=== PATIENT | female | born 1995 | race Caucasian/White ===

== ENCOUNTER 2017-07-16 22:10 | Emergency (ER) | payer OTHER ==
[~2017-07-16] VITALS: Ht 160 cm; Wt 50.3 kg
[~2017-07-16 22:10] MED LIST: [UNRECOGNIZED DRUG - CODE] PO
[2017-07-16 22:15] VITALS: TEMP 36.3; Ht 160 cm; Wt 50.3 kg
[2017-07-16] MEDS ORDERED: METOCLOPRAMIDE HCL INJ 5 MG/ML 2 ML VIAL IV STA (22:35)
[2017-07-16] MEDS ORDERED: ALUMINUM/MAGNESIUM SUSP 30 ML UDC PO STA (22:35)
[2017-07-16] MEDS ORDERED: DiphenhydrAMINE HCL 50 MG/ML VIAL IV STA (22:35)
[2017-07-16] MEDS ORDERED: SODIUM CHLORIDE 0.9% 1000ML 1,000 ML IV STA ×2 (22:35)
[2017-07-16] MEDS ORDERED: LIDOCAINE HCL 2% VISC SOLN 20 ML UDC PO STA (22:35)
[2017-07-16] MEDS ORDERED: DICYCLOMINE HCL 10 MG/ML 2 ML AMP IM ONE (22:45)
[2017-07-16 23:11] LABS: BASO % 0.6 %; BASO ABS # 0.04 K/uL (0-0.2); COMPLETE YES; EOS % 3.5 %; HEMATOCRIT 42.7 % (37-47); IG% 0.2 %; LYMPH % 22.1 %; LYMPH ABS # 1.46 K/uL (1.2-3.4); MEAN CELL VOLUME 89.3 fL (80-100); MEAN CORPUSCULAR HEMOGLOBIN 30.5 pg (25-34); MEAN CORPUSCULAR HGB CONC 34.2 g/dl (32-36); MEAN PLATELET VOLUME 8.8 fL (7.4-10.4); MONO % 5.9 %; NEUT % 67.7 %; PLATELET COUNT 272 K/uL (130-400); RED BLOOD COUNT 4.78 M/uL (4.2-5.4)
[2017-07-16 23:29] LABS: ALT/SGPT 13 U/L (12-78); BLOOD UREA NITROGEN 8 mg/dl (7-18); BUN/CREATININE RATIO 10.1 (10-20); CALCIUM 9.4 mg/dl (8.5-10.1); CARBON DIOXIDE 26 mmol/L (21-32); CHLORIDE 107 mmol/L (98-107); CREATININE 0.83 mg/dl (0.60-1.20); GLUCOSE 93 mg/dl (70-99); POTASSIUM 3.6 mmol/L (3.5-5.1); SODIUM 141 mmol/L (136-145)
[2017-07-16 23:32] LABS: ALKALINE PHOSPHATASE 74 U/L (45-117); AST/SGOT 13 U/L (15-37)
[2017-07-16 23:33] LABS: PREG INTERNAL NEGATIVE QC NEG CLEAR BACKGROUND; PREG INTERNAL POSITIVE QC POS CONTROL LINE
[2017-07-16 23:51] VITALS: O2SAT 99
[2017-07-17 00:17] LABS: URINE APPEARANCE CLEAR (CLEAR); URINE BILIRUBIN NEG (NEG); URINE COLOR YELLOW; URINE NITRITE NEG (NEG); URINE PH 5.5 (4.5-7.5); URINE SPECIFIC GRAVITY 1.026 (1.000-1.030); UROBILINOGEN NEG (NEG); ZZUR CULT IF INDIC CLEAN CATCH NO
[2017-07-17 00:21] LABS: MANUAL MICROSCOPIC REQUIRED? NO; REVIEW REQ? NO
[2017-07-17] MEDS ORDERED: PANTOprazole SOD 40 MG TAB PO STA (00:28)
[2017-07-17] MEDS ORDERED: PANT40TA PO (00:29)
[2017-07-17 00:44] VITALS: BP 110/82; PULSE 88; O2SAT 100
--- NOTE | 2017-07-17 02:22 | EMERGENCY ROOM VISIT NOTE ---
History First contact with patient: 22:16 Chief Complaint: ABDOMINAL PAIN Stated Complaint: STOMACH PAIN Nursing Triage Summary: pt c/o mid abdominal pain that began approx 10pm while she was working at [employer]. reports hx of abd pain "when I eat sulfates, they make me have bad pain. " pt denies diarrhea, urinary symptoms. associates n/v. pt restless, alert and oriented x4. History of Present Illness The patient is a 21 year old female who presents to the Emergency Room with complaints of epigastric discomfort with nausea and vomiting for the past day that has been intermittent abdominal pain for several months now. Patient states certain foods causes her stomach to get upset. She does not see a family care doctor or GI Dr. for this. No prior endoscopy. Pain currently 4- 10. Food makes it worse and nothing makes it better. No black or blood in the stool. Patient does chest pain, dyspnea, fever, chills, diarrhea, back pain, urinary symptoms. Review of Systems See HPI for pertinent positives & negatives. A total of 10 systems reviewed and were otherwise negative. Past Medical/Surgical History Asthma Social History Smoking Status: Current Every Day Smoker Alcohol Use: none Drug Use: none Occupation Status: employed Current/Historical Medications Scheduled Acetaminophen (Tylenol), 1,000 MG PO prn ud Pantoprazole (Protonix), 40 MG PO DAILY Scheduled PRN Albuterol Hfa (Ventolin Hfa), 2 PUFFS INH Q6H PRN for SOB/Wheezing Physical Exam Vital Signs Date Time Temp Pulse Resp B/P (MAP) Pulse Ox O2 Delivery O2 Flow Rate FiO2 07/17/17 00:44 88 18 110/82 100 07/16/17 23:51 99 Room Air 07/16/17 23:49 92 18 110/82 100 Room Air 07/16/17 22:15 36.3 85 20 131/87 97 Room Air Pain Rating (0-10): 4.0 Physical Exam VITALS: Vitals are noted on the nurse's note and reviewed by myself. Vital signs stable. GENERAL: White female, in no acute distress, nondiaphoretic, well-developed well -nourished. SKIN: The skin was without rashes, erythema, edema, or bruising. There is no tenting of the skin. Capillary reflex less than 2 seconds. HEAD: Normocephalic atraumatic. EARS: External auditory canals clear, tympanic membranes pearly anne without erythema or effusion bilaterally. EYES: Pupils equal round and reactive to light and accommodation. Conjunctivae without injection, sclerae without icterus. Extraocular movements intact. NOSE: Patent, turbinates without inflammation or discharge. MOUTH: Mucous membranes moist. Pharynx without erythema or exudate. Uvula midline. Airway patent. Tongue does not deviate. NECK: Supple without nuchal rigidity. No lymphadenopathy. No thyromegaly. Cervical spine is nontender. No JVD. HEART: Regular rate and rhythm without murmurs gallops or rubs. LUNGS: Clear to auscultation bilaterally without wheezes, rales or rhonchi. No dullness to percussion. No retractions or accessory muscle use. ABDOMEN: Positive bowel sounds x 4. Normal tympanic percussion. Soft, minimally tender to palpation epigastric region, no CVA tenderness, without masses or organomegaly. Sevilla sign negative. No guarding or rebound tenderness. MUSCULOSKELETAL: No muscle atrophy, erythema, or edema noted. NEURO: Patient was alert and oriented to person place and time. Normal sensation to light and sharp touch. No focal neurological deficits. Medical Decision & Procedures Laboratory Results 07/16/17 22:47 Red Blood Count 4.78, Mean Corpuscular Volume 89.3, Mean Corpuscular Hemoglobin 30.5, Mean Corpuscular Hemoglobin Concent 34.2, Mean Platelet Volume 8.8, Neutrophils (%) (Auto) 67.7, Lymphocytes (%) (Auto) 22.1, Monocytes (%) (Auto) 5.9, Eosinophils (%) (Auto) 3.5, Basophils (%) (Auto) 0.6, Neutrophils # (Auto) 4.47, Lymphocytes # (Auto) 1.46, Monocytes # (Auto) 0.39, Eosinophils # (Auto) 0.23, Basophils # (Auto) 0.04 07/16/17 22:47 Test 07/16/17 22:47 07/17/17 00:04 White Blood Count 6.60 K/uL (4.8-10.8) Red Blood Count 4.78 M/uL (4.2-5.4) Hemoglobin 14.6 g/dL (12.0-16.0) Hematocrit 42.7 % (37-47) Mean Corpuscular Volume 89.3 fL (80-100) Mean Corpuscular Hemoglobin 30.5 pg (25-34) Mean Corpuscular Hemoglobin Concent 34.2 g/dl (32-36) Platelet Count 272 K/uL (130-400) Mean Platelet Volume 8.8 fL (7.4-10.4) Neutrophils (%) (Auto) 67.7 % Lymphocytes (%) (Auto) 22.1 % Monocytes (%) (Auto) 5.9 % Eosinophils (%) (Auto) 3.5 % Basophils (%) (Auto) 0.6 % Neutrophils # (Auto) 4.47 K/uL (1.4-6.5) Lymphocytes # (Auto) 1.46 K/uL (1.2-3.4) Monocytes # (Auto) 0.39 K/uL (0.11-0.59) Eosinophils # (Auto) 0.23 K/uL (0-0.5) Basophils # (Auto) 0.04 K/uL (0-0.2) RDW Standard Deviation 40.9 fL (36.4-46.3) RDW Coefficient of Variation 12.6 % (11.5-14.5) Immature Granulocyte % (Auto) 0.2 % Immature Granulocyte # (Auto) 0.01 K/uL (0.00-0.02) Anion Gap 8.0 mmol/L (3-11) Est Creatinine Clear Calc Drug Dose 86.6 ml/min Estimated GFR () 118.5 Estimated GFR (Non- 102.2 BUN/Creatinine Ratio 10.1 (10-20) Calcium Level 9.4 mg/dl (8.5-10.1) Total Bilirubin 0.3 mg/dl (0.2-1) Direct Bilirubin < 0.1 mg/dl (0-0.2) Aspartate Amino Transf (AST/SGOT) 13 U/L (15-37) Alanine Aminotransferase (ALT/SGPT) 13 U/L (12-78) Alkaline Phosphatase 74 U/L (45-117) Total Protein 7.9 gm/dl (6.4-8.2) Albumin 4.3 gm/dl (3.4-5.0) Lipase 141 U/L (73-393) Human Chorionic Gonadotropin, Qual NEG (NEG) Urine Color YELLOW Urine Appearance CLEAR (CLEAR) Urine pH 5.5 (4.5-7.5) Urine Specific Sun 1.026 (1.000-1.030) Urine Protein NEG (NEG) Urine Glucose (UA) NEG (NEG) Urine Ketones NEG (NEG) Urine Occult Blood NEG (NEG) Urine Nitrite NEG (NEG) Urine Bilirubin NEG (NEG) Urine Urobilinogen NEG (NEG) Urine Leukocyte Esterase NEG (NEG) Medications Administered Medications (Trade) Dose Ordered Sig/Ulices Route Start Time Stop Time Status Last Admin Dose Admin Lidocaine HCl (Viscous Lidocaine 2% Soln) 10 ml NOW STAT PO 07/16/17 22:35 07/16/17 22:38 DC 07/16/17 22:58 10 ML Al Hydroxide/Mg Hydroxide (Maalox Susp) 30 ml NOW STAT PO 07/16/17 22:35 07/16/17 22:38 DC 07/16/17 22:58 30 ML Dicyclomine HCl (Bentyl Inj) 20 mg NOW ONCE IM 07/16/17 22:45 07/16/17 22:46 DC 07/16/17 23:04 20 MG Metoclopramide HCl (Reglan Inj) 10 mg NOW STAT IV 07/16/17 22:35 07/16/17 22:38 DC 07/16/17 23:01 10 MG Diphenhydramine HCl (Benadryl Inj) 12.5 mg NOW STAT IV 07/16/17 22:35 07/16/17 22:38 DC 07/16/17 23:02 12.5 MG Sodium Chloride 1,000 ml @ 999 mls/hr Q1H1M STAT IV 07/16/17 22:35 07/16/17 23:35 DC 07/16/17 23:00 999 MLS/HR Pantoprazole Sodium (Protonix Tab) 40 mg NOW STAT PO 07/17/17 00:28 07/17/17 00:29 DC 07/17/17 00:39 40 MG ED Course Prior records/ancillary studies reviewed. Triage Nursing notes reviewed. Additional history obtained from friends. The patient's history was concerning for abdominal pain. Differential diagnosis: Etiologies such as appendicitis, diverticulitis, PUD, biliary pathology, UTI, pancreatitis, obstruction, mesenteric ischemia, aortic pathology, infections, inflammatory bowel disease, renal colic, as well as others were entertained. Physical examination findings: As above. ER treatment provided: GI cocktail, Reglan, Benadryl, IV fluids On reassessment the patient felt better. Diagnostics interpreted by me: The labs revealed no leukocytosis. Normal LFTs Imaging studies: Ultrasound negative for cholecystitis per radiology Exam and history seem consistent with epigastric pain that could be related to reflux or IBS. Patient was neurovascularly and neurologically intact. Patient is well-appearing. Patient is tolerating fluids. Patient did not have an acute abdomen on exam. Patient was ambulating without difficulties. Patient was advised to follow-up with family care in a few days or here in the ER sooner for severe pain, fevers, chest pain, abdominal pain, worsening signs or symptoms or as needed. By the evaluation outlined above emergent etiologies such as appendicitis, diverticulitis, PUD, biliary pathology, UTI, pancreatitis, obstruction, mesenteric ischemia, aortic pathology, infections, inflammatory bowel disease, renal colic, as well as others were deemed relatively unlikely. The pt informed about the findings as listed above. All questions were answered and pleased with the treatment. Return instructions were outlined and the patient was discharged in stable condition. Outpatient prescription management: Protonix Referral: The patient was referred back to their primary care physician for follow-up in 2 to 3 days for a recheck of the current condition. Case reviewed with my attending. Patient is given a list of family care doctors in the area and advised to follow -up. Medical Decision As above Medication Reconcilliation Current Medication List: was personally reviewed by me Blood Pressure Screening Patient's blood pressure: Normal blood pressure Impression Primary Impression: Epigastric abdominal pain Departure Information Dispostion Home / Self-Care Condition GOOD Prescriptions Pantoprazole (Protonix) 40 Mg Tab 40 MG PO DAILY for 14 Days, #14 TAB Prov: Sally Richter PA-C 07/17/17 Forms HOME CARE DOCUMENTATION FORM, Work Instructions, Return To Work: 1 day IMPORTANT VISIT INFORMATION Patient Instructions GERD, Abdominal Pain - [facility], [facility] Additional Instructions Protonix 40 m tablet daily for next 2 weeks. Take this on an empty stomach. Try Maalox or Zantac for breakthrough symptoms for reflux. Avoid large meals. Avoid acidic foods. Rest and drink plenty of fluids as tolerated. Continue current medications. Avoid strenuous activities and anything that worsens your pain. Resume normal activities once your symptoms resolve. Return to the ER immediately for worsening or persistent chest pain, abdominal pain, black or blood in your stools, vomiting, fevers, chest pains, difficulty breathing, worsening of your condition, or as needed. Follow up with your primary physician in 2-3 days for a recheck of your current condition. Work Instructions Return To Work: 1 day
--- NOTE | 2017-07-17 07:08 | DIAGNOSTIC IMAGING REPORT ---
ULTRASOUND RIGHT UPPER QUADRANT ABDOMEN CLINICAL HISTORY: Epigastric abdominal pain. COMPARISON STUDY: No priors. TECHNIQUE: Real-time, grayscale, and color flow sonography of the right upper quadrant of the abdomen was performed. Images are reviewed in the transverse and longitudinal planes. FINDINGS: Liver: The liver is normal in size and echotexture. There is no intrahepatic biliary ductal dilatation. The main portal vein is patent. Gallbladder: The gallbladder is normal in appearance. No gallstones are identified. There is no gallbladder wall thickening or pericholecystic fluid. A sonographic Sevilla's sign is reportedly absent. The common bile duct measures up to 0.2 cm in diameter. Pancreas: Visualized portions of the pancreatic head and body are normal in appearance. The splenic vein is patent. Right kidney: Survey images of the right kidney demonstrate normal size and echotexture. There is no hydronephrosis. Ascites: None. IMPRESSION: Unremarkable sonographic assessment of the right upper quadrant. No gallstones are identified. Electronically signed by: Amol Mcknight M.D. 07/17/2017 7:06 AM Dictated Date/Time: 07/17/2017 7:05 AM
== END 2017-07-17 00:50 | disposition home or self-care (01) ==
LOC: C.EDB 22:13 → C.EDC 07-17 00:50
DX: R10.13 Epigastric pain (principal); J45.909 Unspecified asthma, uncomplicated; F17.210 Nicotine dependence, cigarettes, uncomplicated; Z79.899 Other long term (current) drug therapy

== ENCOUNTER 2017-08-08 19:28 | Emergency (ER) | payer OTHER ==
[~2017-08-08] VITALS: Ht 160 cm; Wt 51.2 kg
[2017-08-08 19:46] VITALS: TEMP 37; Ht 160 cm; Wt 51.2 kg
--- NOTE | 2017-08-08 20:10 | EMERGENCY ROOM VISIT NOTE ---
History First contact with patient: 19:51 Chief Complaint: WOUND INFECTION Stated Complaint: SWOLLEN LYMPH NODE, CYST IN NECK WORSENING, PAIN Nursing Triage Summary: see triage noted. reddness/swelling under right jaw, no opening noted. pt states pain with palpation. History of Present Illness The patient is a 21 year old female who presents to the Emergency Room with complaints of a painful mass on the right side of her neck that has been going on for approximately 1 week. The patient denies any injury. She has not taken anything for pain. She denies any fever or chills. She denies any ear pain, throat pain or dental pain. The patient was seen at urgent care 2 days ago. She was given a Z-Tyler. She thinks that the redness and mass had increased in size. Review of Systems 10 system review performed and negative unless noted in HPI or below Past Medical/Surgical History Asthma Family History -Family history of diabetes, hypertension and cancer Social History Smoking Status: Current Every Day Smoker Alcohol Use: none Drug Use: none Housing Status: lives with family Occupation Status: employed Current/Historical Medications Scheduled Amoxicillin & Pot Clavulanate (Augmentin 875-125 mg), 1 TAB PO BID Azithromycin (Zithromax Z-Tyler), 1 PKT PO UD Scheduled PRN Acetaminophen (Tylenol), 1,000 MG PO Q6H PRN for Pain or Fever Albuterol Hfa (Ventolin Hfa), 2 PUFFS INH Q6H PRN for SOB/Wheezing Physical Exam Vital Signs Date Time Temp Pulse Resp B/P (MAP) Pulse Ox O2 Delivery O2 Flow Rate FiO2 08/08/17 23:07 76 15 127/59 99 08/08/17 21:49 80 15 111/68 99 Room Air 08/08/17 19:46 37.0 86 18 106/68 98 Room Air Physical Exam VITALS: Vitals are noted on the nurse's note and reviewed by myself. Vital signs stable. GENERAL: 21-year-old female, in no acute distress, nondiaphoretic, well- developed well-nourished. SKIN: The skin was intact HEAD: Normocephalic atraumatic. EARS: External auditory canals clear, tympanic membranes pearly anne without erythema or effusion bilaterally. EYES: Pupils equal round and reactive to light and accommodation. Conjunctivae without injection, sclerae without icterus. Extraocular movements intact. NOSE: Patent, turbinates without inflammation or discharge. No sinus tenderness. MOUTH: Mucous membranes moist. Tonsils are enlarged and cryptic bilaterally. No erythema or exudate noted.. Pharynx without erythema or exudate. Uvula midline. Airway patent. Tongue does not deviate. NECK: Approximate 2 cm palpable mass on the lateral aspect of the right side of the neck posterior to the sternocleidomastoid. It is mobile. There is associated erythema and tenderness over the area. HEART: Regular rate and rhythm without murmurs gallops or rubs. LUNGS: Clear to auscultation bilaterally without wheezes, rales or rhonchi. No accessory muscle use. MUSCULOSKELETAL: No muscle atrophy, erythema, or edema noted. Strength 5/5 throughout. NEURO: Patient was alert and oriented to person place and time. Normal sensation to touch. No focal neurological deficits. Medical Decision & Procedures ER Provider Diagnostic Interpretation: CT soft tissue neck with contrast 1. The cutaneous marker in the right neck is located over a hyperemic and mildly enlarged right cervical chain lymph node. 2. There is surrounding inflammation and trace subcutaneous fluid in this region which tracks inferiorly along the sternocleidomastoid muscle. This is located just below the right parotid gland, and this could represent a mild parotitis or possibly lymphadenitis in the right neck. Clinical correlation will be essential and clinical follow-up to resolution is recommended. 3. The pharyngeal soft tissues are normal in appearance. Electronically signed by: Amol Mcknight M.D. 08/08/2017 10:03 PM Laboratory Results 08/08/17 20:25 Red Blood Count 4.76, Mean Corpuscular Volume 89.9, Mean Corpuscular Hemoglobin 30.3, Mean Corpuscular Hemoglobin Concent 33.6, Mean Platelet Volume 9.0, Neutrophils (%) (Auto) 63.0, Lymphocytes (%) (Auto) 26.5, Monocytes (%) (Auto) 5.5, Eosinophils (%) (Auto) 4.1, Basophils (%) (Auto) 0.6, Neutrophils # (Auto) 4.45, Lymphocytes # (Auto) 1.87, Monocytes # (Auto) 0.39, Eosinophils # (Auto) 0.29, Basophils # (Auto) 0.04 08/08/17 20:25 Test 10/13/17 20:25 White Blood Count 7.06 K/uL (4.8-10.8) Red Blood Count 4.76 M/uL (4.2-5.4) Hemoglobin 14.4 g/dL (12.0-16.0) Hematocrit 42.8 % (37-47) Mean Corpuscular Volume 89.9 fL (80-100) Mean Corpuscular Hemoglobin 30.3 pg (25-34) Mean Corpuscular Hemoglobin Concent 33.6 g/dl (32-36) Platelet Count 245 K/uL (130-400) Mean Platelet Volume 9.0 fL (7.4-10.4) Neutrophils (%) (Auto) 63.0 % Lymphocytes (%) (Auto) 26.5 % Monocytes (%) (Auto) 5.5 % Eosinophils (%) (Auto) 4.1 % Basophils (%) (Auto) 0.6 % Neutrophils # (Auto) 4.45 K/uL (1.4-6.5) Lymphocytes # (Auto) 1.87 K/uL (1.2-3.4) Monocytes # (Auto) 0.39 K/uL (0.11-0.59) Eosinophils # (Auto) 0.29 K/uL (0-0.5) Basophils # (Auto) 0.04 K/uL (0-0.2) RDW Standard Deviation 43.5 fL (36.4-46.3) RDW Coefficient of Variation 13.3 % (11.5-14.5) Immature Granulocyte % (Auto) 0.3 % Immature Granulocyte # (Auto) 0.02 K/uL (0.00-0.02) Urine Test NEG (NEG) Anion Gap 7.0 mmol/L (3-11) Est Creatinine Clear Calc Drug Dose 96.2 ml/min Estimated GFR () 131.8 Estimated GFR (Non- 113.7 BUN/Creatinine Ratio 9.5 (10-20) Calcium Level 9.2 mg/dl (8.5-10.1) Total Bilirubin 0.5 mg/dl (0.2-1) Aspartate Amino Transf (AST/SGOT) 17 U/L (15-37) Alanine Aminotransferase (ALT/SGPT) 17 U/L (12-78) Alkaline Phosphatase 59 U/L (45-117) Total Protein 8.2 gm/dl (6.4-8.2) Albumin 4.4 gm/dl (3.4-5.0) Globulin 3.8 gm/dl (2.5-4.0) Albumin/Globulin Ratio 1.2 (0.9-2) Medications Administered Medications (Trade) Dose Ordered Sig/Ulices Route Start Time Stop Time Status Last Admin Dose Admin Doxycycline Hyclate (Vibramycin Cap) 100 mg NOW STAT PO 08/08/17 21:45 08/08/17 21:46 DC 08/08/17 22:15 100 MG Ampicillin Sodium/ Sulbactam Sodium 3000 mg/Sodium Chloride 108 ml @ 200 mls/hr NOW STAT IV 08/08/17 22:15 08/08/17 22:47 DC 08/08/17 22:27 200 MLS/HR ED Course Patient was seen and examined Vital signs including blood pressure were reviewed medications list was verified with patient Labs were obtained, and a saline lock was established Imaging was performed and reviewed The patient was reassessed and resting comfortably. We discussed her workup. She voiced understanding. She was given 1 dose of Unasyn 3 g IV I reviewed discharge instructions the patient. They voiced understanding and had no further questions. Medical Decision Differential diagnosis: Lymphadenitis, viral illness, malignancy: Abscess This patient is a 21-year-old female that presents to the emergency department with a palpable, painful mass in the right lateral neck. Her exam is not consistent with an abscess. It feels like an enlarged lymph node on exam. I cannot find any other sources of infection. She denies any dental pain. No recent illnesses. A CT scan was performed. This is consistent with possible lymphadenitis versus a mild parotitis. I discontinued her Z-Tyler. Augmentin, which has good anaerobic coverage, would likely be more appropriate in the history of parotitis. It also should be adequate coverage for lymphadenitis. The patient was instructed to have close follow-up with her primary care physician. If this problem does not resolve, she may need further workup. She was given the name and number of ENT doctor if her symptoms persist. This chart was completed in part utilizing [employer] Voice Recognition software. Attempts were made to minimize the grammatical errors, random word insertions, pronoun errors and incomplete sentences. Any formal questions or concerns about the content, text or information contained within the body of this dictation should be directly addressed to the provider for clarification. Medication Reconcilliation Current Medication List: was personally reviewed by me Blood Pressure Screening Patient's blood pressure: Normal blood pressure Impression Primary Impression: Parotitis Departure Information Dispostion Home / Self-Care Condition GOOD Prescriptions Amoxicillin & Pot Clavulanate (Augmentin 875-125 mg) 1 Tab Tab 1 TAB PO BID for 7 Days, #14 TAB Prov: Yessenia Hernandez PA-C 08/08/17 Referrals No Doctor, Assigned (PCP) Syed Peters D.O. Kao, Yi How, M.D. Patient Instructions My [facility] Additional Instructions You were evaluated in the emergency department for redness and swelling on the right side of your neck. This is likely enlarged lymph node. There also is possible mild inflammation of the parotid gland. Please stop taking azithromycin (Z-Tyler) Finish the entire course of Augmentin. Please take this medication with food. sucking on sour candy may help resolve this condition faster. If this does not resolve, you may need further evaluation by an ear nose and throat doctor. A phone number has been provided. Please follow-up with your primary care physician within the next 2-3 days for recheck. Return to the emergency department if you have any of the following symptoms: -Fever of 102F or greater -increased redness/swelling -Difficulty breathing or swallowing -Worsening pain
[2017-08-08] MEDS ORDERED: OPTIRAY 320 IV PRN (20:15)
[2017-08-08] MEDS ORDERED: AZITTAB PO (20:33)
[2017-08-08 20:44] LABS: BASO % 0.6 %; BASO ABS # 0.04 K/uL (0-0.2); COMPLETE YES; EOS % 4.1 %; HEMATOCRIT 42.8 % (37-47); IG% 0.3 %; LYMPH % 26.5 %; LYMPH ABS # 1.87 K/uL (1.2-3.4); MEAN CELL VOLUME 89.9 fL (80-100); MEAN CORPUSCULAR HEMOGLOBIN 30.3 pg (25-34); MEAN CORPUSCULAR HGB CONC 33.6 g/dl (32-36); MONO % 5.5 %; PLATELET COUNT 245 K/uL (130-400); RED BLOOD COUNT 4.76 M/uL (4.2-5.4); WHITE BLOOD COUNT 7.06 K/uL (4.8-10.8)
[2017-08-08 21:01] LABS: BUN/CREATININE RATIO 9.5 (10-20); CALCIUM 9.2 mg/dl (8.5-10.1); CREATININE 0.76 mg/dl (0.60-1.20); POTASSIUM 3.6 mmol/L (3.5-5.1)
[2017-08-08 21:04] LABS: ALB/GLOB RATIO 1.2 (0.9-2)
[2017-08-08] MEDS ORDERED: DOXYCYCLINE HYCLATE 100 MG CAP PO STA (21:45)
[2017-08-08] MEDS ORDERED: DOXY100C PO (21:52)
--- NOTE | 2017-08-08 22:05 | DIAGNOSTIC IMAGING REPORT ---
CT SCAN OF THE NECK WITH IV CONTRAST CLINICAL HISTORY: Palpable mass in the right neck. COMPARISON STUDY: No priors. TECHNIQUE: Following the IV administration of 93 cc of Optiray 320, CT scan of the soft tissues of the neck was performed from the skull base to the upper chest. Images are reviewed in the axial, sagittal, and coronal planes. IV contrast was administered without complication. A dose lowering technique was utilized adhering to the principles of ALARA. CT DOSE: 246.36 mGy.cm FINDINGS: Soft tissues: A cutaneous marker is present in the right lateral neck below the right parotid gland. There is soft tissue inflammation in this region, with subcutaneous fluid which tracks inferiorly along the sternocleidomastoid muscle. Mild stranding is suggested on the inferior margin of the right parotid gland. The majority of the gland is homogeneous. Deep to the marker there is a hypervascular nodule measuring 1.7 x 1.3 cm. This likely represents a lymph node. Additional mildly enlarged right cervical chain lymph nodes are noted. No organized fluid is seen to suggest abscess. Pharynx: The nasopharynx, oropharynx, and laryngeal pharynx are normal in appearance. The pharyngeal airway is widely patent. There is no evidence of mass lesion. The vocal cords are symmetric. The parapharyngeal fat is well maintained. The prevertebral/retropharyngeal soft tissues are within normal limits. Lymphadenopathy: There is a mildly enlarged and hyperemic right cervical lymph node at the site of interest which measures 1.7 x 1.0 cm. This is discussed above. No left cervical adenopathy is seen. There is no supraclavicular adenopathy. Thyroid: Normal in size and attenuation. Salivary glands: The left parotid gland and the submandibular glands are within normal limits. See above for discussion of the right parotid gland. Brain parenchyma: The visualized brain parenchyma at the skull base is normal in appearance. Vascular structures: The carotid arteries and jugular veins are widely patent bilaterally. Skeletal structures: Imaged portions of the calvarium at the skull base are within normal limits. The cervical spine appears intact. Sinuses and mastoids: The visualized paranasal sinuses are clear. The mastoid air cells are well pneumatized. Lung apices: Visualized apical lung parenchyma is clear. IMPRESSION: 1. The cutaneous marker in the right neck is located over a hyperemic and mildly enlarged right cervical chain lymph node. 2. There is surrounding inflammation and trace subcutaneous fluid in this region which tracks inferiorly along the sternocleidomastoid muscle. This is located just below the right parotid gland, and this could represent a mild parotitis or possibly lymphadenitis in the right neck. Clinical correlation will be essential and clinical follow-up to resolution is recommended. 3. The pharyngeal soft tissues are normal in appearance. Electronically signed by: Amol Mcknight M.D. 08/08/2017 10:03 PM Dictated Date/Time: 08/08/2017 9:55 PM
[2017-08-08] MEDS ORDERED: AMPICILLIN/SULBACTAM SOD INJ 3,000 MG in SODIUM CHLORIDE 0.9% 100ML 100 ML IV STA (22:15)
[2017-08-08] MEDS ORDERED: AMOX875T PO (22:17)
[2017-08-08] MEDS ORDERED: ACET-1256 PO (22:36)
[2017-08-08] MEDS ORDERED: VNTHFA/IN INH (22:36)
[2017-08-08 23:07] VITALS: BP 127/59; PULSE 76; O2SAT 99
== END 2017-08-08 23:05 | disposition home or self-care (01) ==
LOC: C.EDB 19:29 → C.EDD 23:05
DX: K11.20 Sialoadenitis, unspecified (principal); J45.909 Unspecified asthma, uncomplicated; F17.200 Nicotine dependence, unspecified, uncomplicated; Z82.49 Family history of ischemic heart disease and other diseases of the circulatory system; Z83.3 Family history of diabetes mellitus